=== PATIENT | male | born 1995 | race Hispanic/Latino ===

== ENCOUNTER 2022-01-01 14:17 | Emergency (ER) | payer OTHER ==
[~2022-01-01] VITALS: Ht 165.1 cm; Wt 100.7 kg
[2022-01-01] MEDS ORDERED: ACET-66 PO (16:48)
[2022-01-01] MEDS ORDERED: LIDO20SO MM (16:48)
[2022-01-01] MEDS ORDERED: IBUP-2070 PO (16:48)
[2022-01-01] MEDS ORDERED: IBUPROFEN 600 MG TABLET PO ONE (17:00)
[2022-01-01 17:27] VITALS: BP 132/72
== END 2022-01-01 17:40 | disposition home or self-care (01) ==
LOC: EDH 14:17
DX: B34.9 Viral infection, unspecified (principal); Z20.822 Contact with and (suspected) exposure to COVID-19; J45.909 Unspecified asthma, uncomplicated; E11.9 Type 2 diabetes mellitus without complications; Z79.899 Other long term (current) drug therapy
CPT/HCPCS: 99283; 87635; 87880; 87804 ×2; C9803